=== PATIENT | male | born 1985 | race Caucasian/White ===

== ENCOUNTER 2024-05-26 19:33 | Emergency (ER) | payer BC ==
[~2024-05-26] VITALS: Ht 177.8 cm; Wt 86.2 kg
[2024-05-26] MEDS ORDERED: SILVER SULFADIAZINE CREAM 25 GM TUBE ONE (20:09)
[2024-05-26] MEDS: SILVER SULFADIAZINE CREAM 25 GM TUBE TP ONE (20:15)
[2024-05-26] MEDS ORDERED: TDAP [DIPH/PERTUSSIS/TET] 0.5 ML VIAL IM ONE (20:20)
[2024-05-26] MEDS: TDAP [DIPH/PERTUSSIS/TET] 0.5 ML VIAL IM ONE (20:20)
[2024-05-26 20:53] VITALS: BP 131/76; TEMP 98.5; O2SAT 99
== END 2024-05-26 20:25 | disposition home or self-care (01) ==
LOC: ER 19:36
DX: T23.251A Burn of second degree of right palm, initial encounter (principal); R00.1 Bradycardia, unspecified; W86.1XXA Exposure to industrial wiring, appliances and electrical machinery, initial encounter; Y93.89 Activity, other specified; Y92.098 Other place in other non-institutional residence as the place of occurrence of the external cause; Y99.8 Other external cause status
CPT/HCPCS: 90715